=== PATIENT | female | born 1945 | race Two or more races ===

== ENCOUNTER 2021-06-22 11:53 | Emergency (ER) | payer SELFPAY ==
[~2021-06-22] VITALS: Ht 154.9 cm; Wt 65.8 kg
[2021-06-22 11:53] VITALS: BP 147/71
== END 2021-06-22 14:35 | disposition left against medical advice (07) ==
LOC: ER 11:53
DX: Z48.01 Encounter for change or removal of surgical wound dressing (principal); Z53.21 Procedure and treatment not carried out due to patient leaving prior to being seen by health care provider